=== PATIENT | female | born 1980 | race Caucasian/White ===

== ENCOUNTER → 2019-04-26 14:32 | Outpatient (CLI) | payer OTHER, SELFPAY ==
[2019-04-26 15:28] LABS: Add Manual Diff / Slide Review NO; Basophils Absolute Auto 0 /uL (0-100); Basophils Percent Auto 0.3 % (0-2); Eosinophils Absolute Auto 200 /uL (0-450); Eosinophils Percent Auto 2.1 % (2-4); Hematocrit 39.1 % (36-46); Hemoglobin 13.2 g/dL (12.0-16.0); Lymphocytes Absolute Auto 1400 /uL (1100-4500); Lymphocytes Percent Auto 17.3 % (25-40); Mean Corpuscular HGB Conc 33.7 % (30-36); Mean Corpuscular Hemoglobin 30.7 PG (26-34); Mean Corpuscular Volume 90.9 fL (80-100); Monocytes Absolute Auto 500 /uL (0-900); Monocytes Percent Auto 6.6 % (3-14); Neutrophils Absolute Auto 5900 /uL (1500-7000); Neutrophils Percent Auto 73.7 % (50-75); Platelet Count 232 X10^3/uL (150-400); Red Cell Distribution Width 13.1 % (11.6-14.8)
== END ==
PROVIDERS: Referring Provider Specialist; Visit Provider Specialist
DX: Z01.812 Encounter for preprocedural laboratory examination (principal)
CPT/HCPCS: 36415; 85025

== ENCOUNTER → 2019-07-17 09:03 | Outpatient (CLI) | payer OTHER, SELFPAY ==
[2019-07-18 09:52] LABS: COVID19 Sendout Not Detected (Not Detect)
== END ==
PROVIDERS: Visit Provider Registered Nurse
DX: Z01.818 Encounter for other preprocedural examination (principal)
CPT/HCPCS: 87635

== ENCOUNTER 2019-07-20 14:43 | Observation (INO) | payer OTHER, SELFPAY ==
[2019-07-12 08:57] VITALS: BMI 16.6
[2019-07-19] VITALS (19 sets, daily range): BP systolic 94–126; BP diastolic 52–78; PULSE 64–97; RESP 12–19; TEMP 36–37.5; O2SAT 93–99; BMI 16.6
--- NOTE | 2019-07-19 | PATH_ITS ---
[facility] Accession Number: [id number] . 01 Material submitted: . uterus - UTERUS AND BILATERAL FALLOPIAN TUBES AND OVARIES . 02 Diagnosis: Uterus With Bilateral Fallopian Tubes And Ovaries, Hysterectomy And Bilateral Salpingo-oophorectomy: Secretory endometrium with no diagnostic abnormality. Adenomyosis. Cervix with no diagnostic abnormality; no evidence of squamous intraepithelial lesion. Right ovary with benign hemorrhagic corpus luteum cyst. Left ovary with no diagnostic abnormality. Bilateral fallopian tubes with evidence of prior bilateral tubal ligation and no other diagnostic abnormality. No evidence of neoplasm. [facility] 07/24/2019 1547 Local . 02 Electronically signed: . Peng Ac MD, PhD, Pathologist NPI- [id number] . 01 Gross description: . Received in formalin, labeled uterus, bilateral fallopian tubes, bilateral ovaries, is a uterus (93 grams, 4.2 cm AP, 9.0 cm SI, 4.3 cm ML) with attached ovaries (right-3.5 x 2.0 x 2.0 cm; left-3.0 x 1.4 x 1.2 cm) and fimbriated fallopian tubes (right: length-4.0 cm, diameter-0.5 cm; left: length-4.0 cm, diameter-0.4 cm). The fallopian tubes have been surgically bisected remaining attached. The cervix (2.0 cm AP, 2.5 cm ML) has a transverse os and patent endocervical canal. The endometrium (average thickness-0.1 cm) is day, smooth and flat. The myometrium (thickness-1.8 cm) is day-white and unremarkable. The serosa is tavares-purple, smooth and shiny. The ovaries have tavares-day dull flat serosa and red-brown solid cystic parenchyma with corpus albicans and corpus luteum identified. The cavities (0.1 cm-0.7 cm) contain red-brown watery fluid. The fallopian tubes have red-brown smooth shiny serosa and day unremarkable lumens. The ectocervical and paracervical margins are inked blue. Section code: (A1) anterior cervix; (A2) posterior cervix; (A3-A4) anterior endomyometrium; (A5, A6) posterior endomyometrium; (A7, A8) right ovary, product representative serial sections; (A9) left ovary, product representative serial sections; (A10) right fallopian tube, product representative serial sections; (A11) right fimbria, bivalved, entirely submitted; (A12) left fallopian tube, product representative serial sections; (A13-A14) left fimbria, bivalved, entirely submitted. ([id number]) . Additional sections: (A15-A18) anterior endomyometrium, addition sections; (A19, A20) posterior endomyometrium, additional sections; and the remaining cervix is radially sectioned and entirely submitted clockwise from 12 o'clock as follows: (A21-A22) 12 to 3 o'clock; (A23-A24) 3 to 6 o'clock; (A25-A28) 6 to 9 o'clock; (A29-A32) 9 to 12 o'clock. The cervix has now been entirely submitted. ([id number]) /MRV 07/23/2019 1257 Local . 02 Pathologist provided ICD-10: N80.0, N80.3, R87.810 . 02 CPT . 944025 Performed at: 01 [facility] [address] [id number] MD Eric Zelaya MD Phone: [phone] Performed at: [address] [place], [place] [id number] MD Shelley Solis MD Phone: [phone]
--- NOTE | 2019-07-19 07:29 | PM.PREOP ---
Pre-operative Note COVID-19 COVID-19 status: Negative Result date/Date tested (Pos, Neg/Pending): 07/17/19 Interval Note History & Physical reviewed/Exam performed by Physician: Yes Changes to H&P: No
--- NOTE | 2019-07-19 07:30 | PM.GYNHP.1 ---
History of Present Illness History of Present Illness Reason for admission: vaginal bleeding Narrative: Kerline Corona is a 39 year old female admitted for [facility] for menorrhagia, dysmenorrhea with a history of peritoneal endometriosis COUNT INCLUDES THE [facility] Medical History (Updated 07/17/19 @ 09:39 by Shanna Cantu RN) Abnormal Pap smear of cervix (Inactive ~2015) Acne (Chronic ~2014) Anxiety (Acute) Depression (Chronic ~2014) Headache (Chronic ~1999) Heavy menstrual period (Chronic ~2015) Herpes (Inactive ~2003) History of endometrial biopsy (Acute) Irregular menstrual cycle (Chronic ~2017) Migraines (Chronic ~2001) Painful menstrual periods (Chronic) Surgical History (Updated 05/04/19 @ 11:57 by Shanna Cantu RN) Anesthesia (Resolved) History of section (Acute) History of laparoscopy (Resolved) Family History (Updated 04/24/19 @ 15:19 by Dulce Saleh) Father Skin cancer Mother History of heart disease Hypertension Hyperlipidemia Osteoporosis Kidney disease Grandfather Cancer History of heart disease Hypertension Hyperlipidemia Grandmother Cancer History of heart disease Osteoporosis Mental health problem Grandfather Skin cancer Kidney disease Grandmother Diabetes mellitus Social History household members: spouse and children Smoking Status: Never smoker alcohol intake: current Meds Home Medications and Allergies Home Medications Medication Instructions Recorded Confirmed Type folic acid See Rx Instructions IM .COMPLEX 04/16/19 05/04/19 History norethindrone (contraceptive) 0.35 0.35 mg PO DAILY 04/16/19 05/04/19 History mg tablet vitamin B complex See Rx Instructions .ROUTE .COMPLEX 04/16/19 05/04/19 History estradiol 0.05 mg/24 hr semiweekly 1 patch TRANSDERMAL 2XW #8 each 04/26/19 05/04/19 Rx transdermal patch oxycodone-acetaminophen 5 mg-325 2 tab PO Q4-6H PRN #30 tab 04/26/19 05/04/19 Rx mg tablet escitalopram oxalate [Lexapro] 10 mg PO BEDTIME 07/17/19 07/17/19 History Allergies Allergy/AdvReac Type Severity Reaction Status Date / Time No Known Drug Allergies Allergy Verified 07/19/19 07:15 Review of Systems Review of Systems Narrative: Patient is a 38-year-old gravid 2 both by section with tubal ligation who is requesting hysterectomy. The patient has had multiple laparoscopies for endometriosis. She was on Lupron for a year in [id number] for treatment for endometriosis. In the patient tried control pills in the past and had severe nausea and vomiting every time she tried. She denies any bladder leakage. Patient states after both of her C-sections she had difficulty knowing when her bladder was full so she had to set an alarm to make sure she emptied her bladder. This lasted for couple months after her C-sections. She has normal bowel movements. She does have dyspareunia every time. Patient's periods are regular but 3 weeks apart now. The week before her menses she can't function with headaches, nausea, fatigue. The patient bleeds for 5 days usually. For 2-3 days she cannot leave the house because of how heavy she has bleeding and changing her pads at least every 45 minutes. Patient has many family members with cancer. Patient has had abnormal Pap smears since 2005. She is high risk HPV positive. She has had colposcopy a couple times. Discussed options for treatment with the patient and given the endometriosis history, inability to tolerate oral contraceptives, menorrhagia, dyspareunia, and persistent high-risk HPV decision to proceed with laparoscopic-assisted vaginal hysterectomy with bilateral salpingo oophorectomy was discussed with patient. Pros and cons of removing the ovaries including menopause symptoms that might increase her risk for early MA and osteoporosis. Patient will be encouraged to take estrogen at least until average age of menopause of 51-52. Patient was put in chemical menopause in the past so she is aware of other symptoms of menopause. Because of the high-risk HPV she should continue to get Pap several vaginal cuff every 3 years. ROS: Yes All systems reviewed with the patient and are negative except as otherwise documented Exam Narrative Exam Narrative: HEENT exam within normal limits. Lungs are clear to auscultation percussion. Heart is regular rate and rhythm no S3-S4 or murmurs. Abdomen is soft, nontender. Well-healed Pfannenstiel scars. Normal external genitalia, vagina, cervix. Uterus is minimally enlarged, anteflexed, with tenderness, minimal mobility. No palpable adnexal masses, mild tenderness. Extremities without edema and nontender. Consent form for hysterectomy was reviewed with the patient. Risk of reaction to medication or problems from anesthesia, problems breathing, bleeding that may require a blood transfusion or opening the abdomen to control, 10% risk of infection that may require additional antibiotics, blood clots in the veins of legs or lungs, inadvertent or injury to organs and vessels noted the uterus such as the bladder, bowel, ureters. Repair may require opening the abdomen or additional surgery. Scar tissue that might cause pain, dyspareunia, bowel obstruction. Pre and postop instructions reviewed with the patient. Patient states she does better with Percocet than Vicodin. We discussed options for hormone replacement therapy and she is willing to start on the estradiol patch unless the expense becomes too great. Patient plans to spend the night after her surgery. Assessment & Plan Assessment and plan (1) Menorrhagia with regular cycle: Current visit: No Status: Acute (2) Dyspareunia: Current visit: No Status: Acute (3) Endometriosis, pelvic peritoneum: Current visit: No Status: Acute (4) Cervical high risk HPV (human papillomavirus) test positive: Current visit: No Status: Acute Assessment & Plan narrative: Patient here for laparoscopic-assisted vaginal hysterectomy with bilateral salpingo oophorectomy for menorrhagia, dysmenorrhea, and history of peritoneal endometriosis documented by laparoscopy, positive high-risk HPV virus COVID-19 COVID-19 status: Negative Result date/Date tested (Pos, Neg/Pending): 07/17/19
[2019-07-19] MEDS: LACTATED RINGERS 1,000 ML 42 ML IV (07:42)
[2019-07-19] MEDS: CEFAZOLIN 2 GM/100 ML FROZ.PIGGY IV (07:48)
--- NOTE | 2019-07-19 08:26 | SUR.OPER ---
Lithotomy on padded OR bed. [place] Pad Positioner under torso. Head on pillow, arms padded and tucked at sides. Legs secured in padded yellow fins stirrups.
[2019-07-19] MEDS: ACETAMINOPHEN IV 1,000 MG/100 ML VIAL 400 MG IV (08:30)
[2019-07-19] MEDS: BUPIVACAINE 0.5% W/ EPI (PF) 10 ML VIAL 30 ML INJ (08:38)
--- NOTE | 2019-07-19 09:57 | P.OP_ITS ---
Operative Date/Time/Diagnoses Date of procedure: 07/19/19 Time of procedure: 09:57 Pre-op diagnosis: Menorrhagia, dysmenorrhea, history of perineal endometriosis, high-risk HPV positive Post-op diagnosis: same Procedure & Clinicians Procedure: Laparoscopic-assisted vaginal hysterectomy and cystoscopy Same procedure as scheduled: No (Cystoscopy performed for blood in the urine) Indications: Menorrhagia, dysmenorrhea, history of perineal endometriosis, high- risk HPV Surgeon: Fern Aguirre Click Yes if Unassisted: No Anesthesia Type: General Operative Notes Findings: Normal ovaries and uterus, status post tubal ligation, minimal areas of endometriosis, small tear in the bladder right side lateral and superior to the ureter Closure Type: primary Specimen(s): other (Uterus, tubes, and ovaries) Applied: catheter (Mauricio) Estimated Blood Loss (mL): 50 Blood products transfused: none Procedure in detail: Operative description: Patient was brought to the operating room where she underwent general anesthesia. She was placed in [facility] stirrups. A 20 point check system was reviewed. 2 gram Ancef were in prior to beginning case. Warming was in place. Pulsatile stockings were in place and functional. She was prepped and draped in the usual sterile fashion. A single-tooth tenaculum was placed on the anterior lip of the cervix. The cervix was dilated to #6 Hegar dilator to allow the uterine manipulator to be placed through the cervix into the uterus with the balloon inflated with 3 mL of air. A Mauricio catheter was placed. Area of a prior umbilical incision was injected with lidocaine. An incision was made with the scalpel. The varies needle was placed in the abdomen. Correct placement was noted by withdrawing on the syringe and the having a drop of water fall easily through the syringe into the abdomen. The abdomen was insufflated with CO2. 5 mm trochars were placed in the right and left lower quadrant under direct visualization. There did not appear to be any damage with placement of the trochars. The PK generator was used to cauterize and cut the infundibulopelvic ligaments bilaterally. Sequential bites were taken down the broad ligament freeing the fallopian tubes and ovaries bilater ally. Next the procedure was switched to a vaginal approach. A single-tooth tenaculum was placed on the posterior lip of the cervix and a posterior colpotomy incision was made. The uterosacral ligaments were clamped, cut, and ligated with 0 Vicryl suture which was used throughout the rest the case unless otherwise indicated. The cervix was circumscribed with the scalpel. The bladder pillars were clamped cut and ligated. Using sharp and blunt dissection the bladder was pushed away from the cervix. Sequential bites were taken up the cardinal and broad ligaments with the LigaSure. An anterior colpotomy incision was made and the bladder held away from the uterus. The uterus tubes and ovaries were removed vaginally. Adequate hemostasis noted. The vaginal cuff was closed from anterior to posterior with [id number] sutures. The abdomen was reinsufflated and adequate hemostasis was noted. The CO2 was allowed to escape from the abdomen and the trochars were removed. The skin was closed with 4-0 Monocryl. Counts of instruments and sponges were correct. At that point blood was noted in the Mauricio catheter. Cystoscopy was performed. Both ureters were seen to be functional. There is a small tear in the bladder lateral and superior to the right ureter. Mauricio catheter was replaced. Patient went to recovery room in good condition. Complications: other (Small tear in the bladder) Post-operative Condition: stable Disposition: Acute Care Plan for aftercare: Routine post laparoscopic hysterectomy. Patient will be sent home with a Mauricio catheter for 1 week
[2019-07-19] MEDS: MEPERIDINE 50 MG/ML INJ 12.5 MG IV ×2 (10:20→10:25)
[2019-07-19] MEDS: OXYCODONE IR 5 MG TABLET PO (10:22)
[2019-07-19] MEDS: HYDROMORPHONE 2 MG INJ IV ×2 (10:34→10:45)
[2019-07-19] MEDS: hydrOXYzine 50 MG/ML INJ 25 MG IM (10:47)
--- NOTE | 2019-07-19 11:02 | SUR.PHASEI ---
Patient tolerating po. Denies nausea. Gave IV, IM and po medication for c/o pain. [place] CDI. Peripad clean. Icepad on abdomen.
[2019-07-19] MEDS: KETOROLAC 30 MG/ML VIAL IV ×2 (12:37→18:43)
[2019-07-19] MEDS: LACTATED RINGERS 1,000 ML 100 ML IV ×2 (12:38→21:34)
[2019-07-19] MEDS: OXYCODONE/ACETAMINOPHEN 5/325 TABLET 2 TAB PO ×3 (13:47→21:54)
[2019-07-19] MEDS: ESCITALOPRAM 10 MG TABLET PO (20:40)
[2019-07-19] MEDS: DOCUSATE 250 MG CAPSULE PO (20:41)
[2019-07-20 00:30] VITALS: BP 99/64; PULSE 76; RESP 16; TEMP 37.2; O2SAT 95
--- NOTE | 2019-07-20 00:31 | PC.NURSE ---
Addendum entered by Bridget Roberts R.N. 07/20/19 06:35: Medicated for 3/10 with Percocet but patient requested only 1 tab be given. Urine noted to have pink tinge. Up to walk in jones with SBA and tolerated well. Addendum entered by Bridget Roberts R.N. 07/20/19 01:43: Noted that earlier BP was 99/64 but patient is asymptomatic. Original Note: Patient is alert and oriented. Breath sounds CTA with RA sat of 95%. HRR. Denies nausea. BT absent and has not passed any flatus as yet. Dressings (bandaid) to abdomen with small amount drainage on right. Abdomen is soft but tender and mildly distended above pubis. Indwelling catheter is patent; urine is clear bandar. Small amount drainage on peripad. Assisted to dangle at edge of bed and denied any dizziness. Assisted to reposition in bed as well as patient is reluctant to move on her own. States abdominal pain is 4/10 and tolerable but requests Toradol when she can next have it. Agreeable to having bilateral calf SCD's applied at this time. Fall risk score is low.
[2019-07-20] MEDS: KETOROLAC 30 MG/ML VIAL IV ×3 (00:41→16:29)
[2019-07-20] MEDS: OXYCODONE/ACETAMINOPHEN 5/325 TABLET 2 TAB PO ×6 (02:02→21:25)
[2019-07-20 05:36] LABS: Add Manual Diff / Slide Review NO; Basophils Absolute Auto 0 /uL (0-100); Basophils Percent Auto 0.3 % (0-2); Eosinophils Absolute Auto 100 /uL (0-450); Eosinophils Percent Auto 0.6 % (2-4); Hematocrit 28.9 % (36-46); Hemoglobin 9.9 g/dL (12.0-16.0); Lymphocytes Absolute Auto 1300 /uL (1100-4500); Lymphocytes Percent Auto 14.9 % (25-40); Mean Corpuscular HGB Conc 34.3 % (30-36); Mean Corpuscular Hemoglobin 31.5 PG (26-34); Monocytes Absolute Auto 600 /uL (0-900); Monocytes Percent Auto 6.1 % (3-14); Neutrophils Absolute Auto 7000 /uL (1500-7000); Neutrophils Percent Auto 78.1 % (50-75); Platelet Count 158 X10^3/uL (150-400); Red Blood Cell Count 3.14 X10^6/uL (4.0-5.2); Red Cell Distribution Width 12.9 % (11.6-14.8)
[2019-07-20 05:48] LABS: BUN Creatinine Ratio 19.2 (6-22); Blood Urea Nitrogen 15 mg/dL (7-17); Calcium 8.5 mg/dL (8.4-10.2); Carbon Dioxide 28 mmol/L (22-32); Chloride 104 mmol/L (98-107); Estimated Glomerular Filt Rate > 60.0 mL/min (>60); Glucose 103 mg/dL (70-100); HEMOLYSIS < 15 (0-50); Potassium 4.2 mmol/L (3.4-5.1); Sodium 135 mmol/L (137-145)
[2019-07-20 06:35] VITALS: BP 92/53; PULSE 81; RESP 16; TEMP 36.7; O2SAT 99
[2019-07-20 07:55] VITALS: BP 99/56; PULSE 74; RESP 17; TEMP 37.1; O2SAT 97
[2019-07-20] MEDS: DOCUSATE 250 MG CAPSULE PO ×2 (08:20→21:26)
[2019-07-20] MEDS: polyethylene glycoL 3350 17 GM POWD.PACK PO ×2 (08:32→21:26)
[2019-07-20] MEDS: ESTRADIOL 0.05 MG PATCH TOP (11:42)
--- NOTE | 2019-07-20 11:51 | PC.NURSE ---
PATIENT HAS AMBULATED IN HALLS TWICE SO FAR THIS SHIFT. SBA WITH WALKER FROM RM 216 TO RM 222 AND BACK. SLOW MOBILITY R/T ABD PAIN. STATES THE RIGHT SIDE HURTS THE WORST. RATES 3-4/10. REVIEWED LEG BAG TEACHING WITH PATIENT VERBALLY AND PROVIDED HANDOUT FROM [place] ON LEG BAG TEACHING. PATIENT CONFIRMS UNDERSTANDING AND WILL HAVE PATIENT DEMONSTRATE PRIOR TO DC HOME. UOP 750CC'S LIGHT PINK WATERMELON COLOR URINE FROM [place] SO FAR THIS SHIFT.
--- NOTE | 2019-07-20 13:22 | CM.DANOTE ---
Discharge Planning/Care Management DCP: assessment: case received, EMR reviewed. Discussed case with JOVANI Mullen and then met with pt. Inroduced self and role. Pt s a 39 year old female who admitted yesterday for a scheduled hysterectomy. Surgeon: Dr. Aguirre. PCP: AUBREY Staley of the [facility] in [facility]. Payer: [facility] complication: small tear in bladder: plan is for pt to go home with the painter catheter in place for a week and she is getting teaching from [facility] staff on the management. JOVANI Mullen says Dr. Aguirre has called to check on pt and says that she wants to make sure her bowels are moving before she d/c's. She is expected at this point to stay overnight. P: home with 's support when stable for same and as per details above. CM Discharge Assessment Start: 07/20/19 13:21 Freq: Status: Active Protocol: Document 07/20/19 13:21 ITV (Rec: 07/20/19 13:22 IT [id number]) Discharge Planning Assessment Advance Directives? No History Provided By Patient,Medical Record Prior Living Arrangements House Household Members spouse,children Independent with ADL's Yes Is patient alert and oriented? Yes Review Status In Process Pre-Anesthesia Assessment Start: 07/12/19 08:57 Freq: Status: Complete Protocol: Document 07/12/19 08:57 CAB (Rec: 07/12/19 09:01 CAB [id number]) Pre-Anesthesia Assessment Patient Information Reviewed Via Chart Review Primary Care Provider Katerina Staley Seen Specialist in Last 12 Months Yes Specialist Seen Snapper On Primary Language Czech Materials Handling Coordinator Required No Height 160.02 cm Weight 42.638 kg Body Mass Index (BMI) 16.6 Barriers to Learning None Other Aids No Hx Anesthesia Reactions No Anesthesia Review Requested No Clam Bed Worker No Smoking Status Never smoker Pain Present Pain Reported History of Falling (Recent or History of No ) Patient is completely paralyzed or No completely immobile Mental Status Oriented to own ability Is patient on oxygen? No Does patient have ISLAS/SOB No Hx Sleep Apnea No Currently Taking a Beta Zana No Can You Climb a Flight of Stairs Without Yes SOB Hx Chest Pain No Hx SOB No Hx Syncope or Dizziness No Anti-Coagulant Therapy No Has a Launch Manager No Cardiac Testing No Hx Pacemaker/ICD No Pacemaker Rep Required? No Cardiac Clearance Received Not Applicable dysphagia No Urinary Catheter Present No Hx Urinary Self Catheterization No Diabetes No Patient No Lactating No Hx Drug Resistant Organism No Have you had any close contact with Unknown, chart review only someone diagnosed with COVID-19? Evaluation/Screening for possible COVID- No 19 infection completed? Marital Status Lives With spouse,children Patient Discharge Plan Description Return Home
[2019-07-20 14:00] VITALS: BP 85/46; PULSE 71; RESP 17; TEMP 37.1; O2SAT 95
[2019-07-20] MEDS: LACTATED RINGERS 1,000 ML 100 ML IV (16:30)
[2019-07-20 16:45] VITALS: BP 110/53; PULSE 69; RESP 16; TEMP 36.8; O2SAT 97
--- NOTE | 2019-07-20 17:19 | PC.NURSE ---
Addendum entered by Misti Huntley R.N. 07/20/19 19:45: Pt reports nausea improved. Discussed with pt effects on gut of opiates and encouraged use of ibuprofen with limited percocet if pt felt able to do so. Pt moves in bed independently and reports to this marine underwriter just passed some flatus. Ice to abdomen. This marine underwriter being sent home d/t low census. Relieved by Parvez HAHN for this patient's care and pt was informed. Addendum entered by Misti Huntley R.N. 07/20/19 18:58: Pt back in bed. Reports nausea began like a light switch. Bowel tones are quiet. Abdomen is flat. No flatus. Zofran iv administered to treat. Requests scd's be removed and this was done. Addendum entered by Misti Huntley R.N. 07/20/19 17:28: Dr. Aguirre in to see patient. Original Note: At bedside shift report, pt requests pain medications be provided @ 1630. Pt quietly resting in bed on right side at this time and was medicated with percocet and toradol as per emar. Pt initiates desires to walk in hallway and BUTTON SEWING MACHINE OPERATOR facilitated this activity. Mauricio to gravity with clear, yellow urine. Up in chair for dinner. Denies passage of flatus and denies nausea. Ice pack provided to treat surgical/incisional pain to abdomen. IV fluids infusing as ordered to right wrist iv site without difficulty. Scant vaginal bleeding on catheter; pericare by BUTTON SEWING MACHINE OPERATOR.
--- NOTE | 2019-07-20 17:42 | PM.PNPO.1 ---
Subjective Subjective Date Patient Seen: 07/20/19 Time Patient Seen: 17:42 Interval history: Patient still is not passing gas and has decreased appetite. She is ambulating well. Her pain is 5/10 now with discomfort up under her ribs she is associating with gas pain. She has minimal vaginal bleeding. Exam Vital Signs (past 8 hours): - 07/20/19 14:00 Temperature 98.8 F Pulse Rate 71 Respiratory Rate 17 Blood Pressure 85/46 L Pulse Oximetry 95 Oxygen Delivery Method Room Air Oxygen Flow Rate 0 Narrative Exam Narrative: Abdomen is soft with tenderness but no rebound. Her dressings are dry. Minimal bleeding on her pad. Extremities without edema and nontender. Objective Labs Result Diagrams: 07/20/19 05:20 07/20/19 05:20 Labs: Laboratory Results - last 24 hr 07/20/19 07/20/19 05:20 05:20 WBC 9.0 RBC 3.14 L Hgb 9.9 L Hct 28.9 L MCV 92.0 MCH 31.5 MCHC 34.3 RDW 12.9 Plt Count 158 Neut % (Auto) 78.1 H Lymph % (Auto) 14.9 L Mcmullen % (Auto) 6.1 Eos % (Auto) 0.6 L Baso % (Auto) 0.3 Neut # (Auto) 7000 Lymph # (Auto) 1300 Mcmullen # (Auto) 600 Eos # (Auto) 100 Baso # (Auto) 0 Sodium 135 L Potassium 4.2 Chloride 104 Carbon Dioxide 28 BUN 15 Creatinine 0.78 Estimated GFR > 60.0 BUN/Creatinine Ratio 19.2 Glucose 103 H Calcium 8.5 Assessment & Plan Post-op Assessment and plan (1) Postoperative ileus: (2) Status post laparoscopic assisted vaginal hysterectomy (LAVH): Postoperative Procedures: Procedures Operation Date: 07/19/19 07:45 Actual Procedures Side Surgeon p Laparoscopic Assisted Vaginal Hysterectomy W/ Bilateral Salpingo-oophorectomy, post cystoscopy Fern Aguirre MD Postoperative day: 1 Postoperative status: post-op ileus and marginal pain control Postoperative status narrative: Patient with postoperative ileus and marginal pain control. Will continue to ambulate and stool softeners with laxatives. IV fluids. Postoperative plan: ambulate Postoperative plan narrative: Home when patient is passing gas. Time Spent With Patient Time with patient: 25 - 35 minutes
[2019-07-20] MEDS: ONDANSETRON 4 MG/2 ML INJ IV (18:00)
[2019-07-20 21:19] LABS: Add Manual Diff / Slide Review NO; Basophils Absolute Auto 0 /uL (0-100); Basophils Percent Auto 0.2 % (0-2); Eosinophils Absolute Auto 100 /uL (0-450); Eosinophils Percent Auto 0.7 % (2-4); Hematocrit 28.8 % (36-46); Hemoglobin 9.7 g/dL (12.0-16.0); Lymphocytes Absolute Auto 600 /uL (1100-4500); Lymphocytes Percent Auto 8.4 % (25-40); Mean Corpuscular HGB Conc 33.8 % (30-36); Mean Corpuscular Hemoglobin 31.3 PG (26-34); Mean Corpuscular Volume 92.8 fL (80-100); Monocytes Absolute Auto 500 /uL (0-900); Monocytes Percent Auto 7.2 % (3-14); Neutrophils Absolute Auto 6300 /uL (1500-7000); Neutrophils Percent Auto 83.5 % (50-75); Platelet Count 137 X10^3/uL (150-400); Red Cell Distribution Width 13.3 % (11.6-14.8); White Blood Cell Count 7.5 X10^3/uL (4.5-11.0)
[2019-07-20] MEDS: IBUPROFEN 600 MG TABLET PO (21:26)
[2019-07-20] MEDS: ESCITALOPRAM 10 MG TABLET PO (21:27)
[2019-07-20 21:31] VITALS: BP 91/52; PULSE 66; RESP 16; TEMP 36.8; O2SAT 96
[2019-07-21] VITALS: BP 104/66; PULSE 76; RESP 16; TEMP 36.8; O2SAT 96
[2019-07-21] MEDS: LACTATED RINGERS 1,000 ML 100 ML IV (03:03)
[2019-07-21] MEDS: ONDANSETRON 4 MG/2 ML INJ IV (03:04)
[2019-07-21 03:35] VITALS: BP 118/64; PULSE 64; RESP 14; TEMP 36.6; O2SAT 94
--- NOTE | 2019-07-21 05:55 | PC.NURSE ---
Addendum entered by Mackenzie Day R.N. 07/21/19 06:25: slightly low end of urine output. Encouraged PO intake Original Note: Pt states she started to pass gas late on evening shift. Bowel tones active, little slow. Mild distention and tenderness to abdomen. Lap site have small amount shadow drainage Mauricio patent with clear yellow urine No vaginal bleeding noted Complained of some nausea this morning, given Zofran and went back to sleep Denied pain LR@100mL/hr
[2019-07-21 08:36] VITALS: BP 115/70; PULSE 65; RESP 16; TEMP 37.4; O2SAT 98
--- NOTE | 2019-07-21 09:57 | P.DS_ITS ---
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 Discharge Providers Provider Date of admission: 07/20/19 14:43 Discharge Date: 07/21/19 Discharge provider: Fern Aguirre MD Summary Hospital Course Discharge Diagnosis: Menorrhagia, peritoneal endometriosis, inadvertent tear in the bladder, postop ileus Hospital Course: Patient was admitted for laparoscopic-assisted vaginal h ysterectomy with bilateral salpingo oophorectomy. Patient had a small tear in the bladder that was treated with Mauricio drainage. Patient had a postop ileus that has now resolved with the patient passing gas. She does have some mild nausea. She has pain but it is gradually improving. She is ambulating well. She feels that she is able to be discharged home Exam Vital Signs (past 8 hours): - 07/21/19 03:35 07/21/19 08:36 Temperature 97.8 F 99.3 F Pulse Rate 64 65 Respiratory Rate 14 16 Blood Pressure 118/64 115/70 Pulse Oximetry 94 98 Oxygen Delivery Method Room Air Oxygen Flow Rate 0 Narrative Exam Narrative: Patient's abdomen is mildly distended and mildly tender but no rebound. Her incisions are clean, dry, intact. Minimal vaginal bleeding. Extremities without edema and nontender. Mauricio is draining clear yellow urine. Objective Labs Result Diagrams: 07/20/19 21:12 07/20/19 05:20 Labs: Laboratory Results - last 24 hr 07/20/19 21:12 WBC 7.5 RBC 3.10 L Hgb 9.7 L Hct 28.8 L MCV 92.8 MCH 31.3 MCHC 33.8 RDW 13.3 Plt Count 137 L Neut % (Auto) 83.5 H Lymph % (Auto) 8.4 L Sargent % (Auto) 7.2 Eos % (Auto) 0.7 L Baso % (Auto) 0.2 Neut # (Auto) 6300 Lymph # (Auto) 600 L Sargent # (Auto) 500 Eos # (Auto) 100 Baso # (Auto) 0 Discharge Plan Discharge Plan Patient Disposition: Home Discharge orders & Medications Prescriptions: New ibuprofen 600 mg Tablet 600 mg PO Q6HR PRN (Reason: Fever/Mild Pain (1-3)) Qty: 20 RF: 0 nitrofurantoin monohyd/m-cryst [Macrobid] 100 mg capsule 100 mg PO BID Qty: 10 RF: 0 ondansetron 4 mg tablet,disintegrating 4 mg PO Q6H PRN (Reason: nausea and vomiting) Qty: 10 RF: 1 oxycodone-acetaminophen [Percocet] 5-325 mg tablet 2 tab PO Q4-6H PRN (Reason: pain) Qty: 20 RF: 0 Continued vitamin B complex See Rx Instructions .ROUTE .COMPLEX RF: 0 folic acid See Rx Instructions IM .COMPLEX RF: 0 estradiol 0.05 mg/24 hr patch semiweekly 1 patch transdermal 2XW Qty: 8 RF: 12 escitalopram oxalate [Lexapro] 10 mg Tablet 10 mg PO BEDTIME RF: 0 Discontinued norethindrone (contraceptive) [Ortho Micronor] 0.35 mg tablet 0.35 mg PO DAILY RF: 0 Follow up/Referrals: Fern Aguirre MD [Physician] - 1 Week (Removal of Mauricio catheter) Diet/Activity/Treatments Diet: Regular Catheter: 2-way Mauricio Catheter comment: Patient to learn how to use a leg bag Skin/Wound/Dressing Care Report to your healthcare provider any signs of infection, such as:: chills, fever, increased pain and unusual redness Dressing: Leave Steri-Strips in place for 1 week. Can get wet just pat dry Visit Report/Discharge Packet Instructions: DI for Hysterectomy Discharge Data Attending Provider: Fern Aguirre Admit Date/Time: 07/20/19 14:43
[2019-07-21] MEDS: polyethylene glycoL 3350 17 GM POWD.PACK PO (10:01)
[2019-07-21] MEDS: DOCUSATE 250 MG CAPSULE PO (10:01)
[2019-07-21] MEDS: IBUPROFEN 600 MG TABLET PO (10:01)
--- NOTE | 2019-07-21 10:30 | PC.NURSE ---
Patient is awake and states that her nausea is better! She has 3 lap sites that are cdi, with ss and tegaderm. Given ibuprofen for discomfort. Patient has a small amount of bleeding to her pad. Mauricio draining yellow urine. Patient will be going home with this. She will have leg bag teaching before going home. She is resting comfortably now.
[2019-07-21 11:44] VITALS: BP 146/73; PULSE 71; RESP 16; TEMP 37.3; O2SAT 98
== END 2019-07-21 13:30 | disposition home or self-care (01) ==
LOC: OR 14:57
PROVIDERS: Admitting Provider Specialist; Referring Provider Specialist; Visit Provider Specialist
PROC: 0UT9FZZ Resection of Uterus, Via Natural or Artificial Opening With Percutaneous Endoscopic Assistance (ICD-10-PCS; CPT 58552; principal; 2019-07-19 07:45)
DX: N92.0 Excessive and frequent menstruation with regular cycle (principal); N80.3 Endometriosis of pelvic peritoneum; N80.1 Endometriosis of ovary; S37.23XA Laceration of bladder, initial encounter; F41.9 Anxiety disorder, unspecified; F32.9 Major depressive disorder, single episode, unspecified; G43.909 Migraine, unspecified, not intractable, without status migrainosus; G25.2 Other specified forms of tremor; K56.7 Ileus, unspecified
CPT/HCPCS: 58552; 52000; 36415; 80048; 85025; G0378; J0131; J0330; J0690; J1100; J1170; J1885; J2175; J2250; J2405; J2704; J3010; J3410

== ENCOUNTER → 2019-09-05 08:21 | Outpatient (CLI) | payer OTHER, SELFPAY ==
[2019-07-19 13:25] VITALS: BMI 16.6
== END ==
PROVIDERS: Visit Provider Specialist
DX: R30.0 Dysuria (principal)
CPT/HCPCS: 87086

== ENCOUNTER → 2019-09-17 16:16 | Outpatient (CLI) | payer OTHER, SELFPAY ==
[2019-07-19 13:25] VITALS: BMI 16.6
[2019-09-17 18:01] LABS: Add Manual Diff / Slide Review NO; Basophils Absolute Auto 0 /uL (0-100); Basophils Percent Auto 0.8 % (0-2); Eosinophils Absolute Auto 200 /uL (0-450); Eosinophils Percent Auto 3.8 % (2-4); Hematocrit 38.7 % (36-46); Lymphocytes Absolute Auto 1300 /uL (1100-4500); Mean Corpuscular HGB Conc 33.7 % (30-36); Mean Corpuscular Hemoglobin 30.7 PG (26-34); Mean Corpuscular Volume 91.1 fL (80-100); Monocytes Absolute Auto 400 /uL (0-900); Monocytes Percent Auto 7.3 % (3-14); Neutrophils Absolute Auto 3000 /uL (1500-7000); Neutrophils Percent Auto 62.1 % (50-75); Platelet Count 239 X10^3/uL (150-400); Red Blood Cell Count 4.24 X10^6/uL (4.0-5.2); Red Cell Distribution Width 13.1 % (11.6-14.8); White Blood Cell Count 4.9 X10^3/uL (4.5-11.0)
== END ==
PROVIDERS: Referring Provider Specialist; Visit Provider Specialist
DX: R10.9 Unspecified abdominal pain (principal); R53.83 Other fatigue
CPT/HCPCS: 36415; 85025